=== PATIENT | female | born 1975 | race Caucasian/White ===

== ENCOUNTER 2019-05-17 09:52 | Day surgery (SDC) | payer OTHER ==
[2019-05-13 16:20] LABS: Absolute Lymphocytes (CBC) 3.2 K/uL (0.7-4.9); Basophils % 0.9 % (0-1.3); Hematocrit 45.3 % (36.0-45.0); Lymphocytes % 31.2 % (15.3-44.8); MPV 8.6 fL (7.6-11.3); RBC Red Blood Cell Count 4.72 M/uL (3.86-4.86)
[2019-05-17] MEDS ORDERED: Ringers Lactate 1,000 ML IV ONE (10:33)
[2019-05-17] MEDS ORDERED: FENTANYL CITR 100 MCG/2 ML ONE (11:02)
[2019-05-17] MEDS ORDERED: MIDAZOLAM HCL 2 MG/2 ML INJ ONE (11:02)
[2019-05-17] MEDS ORDERED: PROPOFOL 200 MG/20 ML VIAL IV ONE (11:02)
[2019-05-17] MEDS ORDERED: LIDOCAINE 2% MPF 5 ML VIAL ONE (11:02)
[2019-05-17] MEDS ORDERED: NA CHLORIDE 0.9% 1,000 ML ONE (11:35)
[2019-05-17] MEDS ORDERED: SILVER NITRATE 1 APPL TOP ONE ×2 (11:35→12:52)
--- NOTE | 2019-05-17 12:17 | P.OP ---
Equipment Service Lead: NONE,NONE Preoperative diagnosis: abnormal uterine bleeding Primary procedure: Hysteroscopy, dilation and curettage, & Novasure ablation Estimated blood loss: none Specimen: endometrial curettings Findings: fluffy endometrium with polyps Operative Technique: Ms. Leroy is a 44 year-old female who presented to the office for abnormal uterine bleeding. Ultrasound imaging did not reveal any submucosal fibroids or polyps. An endometrial biopsy was done which was normal. Conservative therapies including were discussed. Ultimately, a plan was made to proceed with a novosure endometrial ablation. Risks, potential complications, and benefits were discussed with and consent was signed prior to the OR. Procedure: Under general anaesthetic in a dorsal lithotomy position, the patient was prepped and draped in the usual sterile manner. Bimanual exam prior to prepping revealed a mobile, anteverted enlarged uterus. A bivalve speculum was placed in the vagina and the anterior lip of the cervix was grasped with a single toothed tenaculum and brought forward. Taking care not to enter deep into the uterus, a sound was passed inside to measure the length of the uterus and cervix. This length was found to be 10 cm. Next, a large Hegar dilator was inserted into the cervical os to measure the cervical length which was 3 cm. This yielded an endometrial cavity length of 7cm. A series of Hegar dilators were then inserted sequentially into the cervical os up to a size of 5 mm. The diagnostic hysteroscope was then introduced into the uterine cavity and the uterus was distended with normal saline fluid. The cavity was examined and found to be normal shape with polyps. Both ostea were visualized. The scope was removed that the cervix was further dilated to 8mm. A curette was introduced into the cavity and a gentle and thorough curettage was performed. The sample was sent to pathology. The novosure device was then opened and tested; the fan deployed easily. The instrument was set to the correct cavity length and introduced into the uterine cavity. The fan was slowly deployed with gentle movements to ensure a snug fit within the cavity. The cavity width read 4. The measurements were imported and a cavity check was done. The trumpet was then slid down to the cervix and the device was activated. The total burn time was 1 min 45 seconds and the power was 143. The fan was retracted and device removed. The fan was examined and revealed charred tissue. The tenaculum was removed and the cervix examined for hemostasis which was achieved. Finally the bivalve speculum was removed. The patient tolerated the procedure well and was brought to the recovery room in a stable condition. At the end of the procedure all sponges and instruments were counted and correct. The blood loss was minimal and there were no complications. Complications: None Transferred to: Recovery Room Condition: Good
[2019-05-17] MEDS ORDERED: KETOROLAC 30 MG/ML INJ ONE (12:20)
[2019-05-17] MEDS: HYDROMORPHONE HCL 1 MG/ML INJ ONE ×2 (12:48→12:55)
[2019-05-17] MEDS ORDERED: ONDANSETRON 4 MG/2 ML VIAL ONE (13:04)
== END 2019-05-17 14:12 | disposition home or self-care (01) ==
LOC: OR 09:52
PROVIDERS: ATTEND Student in an Organized Health Care Education/Training Program
PROC: 0UDB7ZX Extraction of Endometrium, Via Natural or Artificial Opening, Diagnostic (ICD-10-PCS; 2019-05-17)
PROC: 0U5B8ZZ Destruction of Endometrium, Via Natural or Artificial Opening Endoscopic (ICD-10-PCS; principal; 2019-05-17 11:00)
DX: N80.0 Endometriosis of uterus (principal); N84.0 Polyp of corpus uteri; N92.0 Excessive and frequent menstruation with regular cycle; N94.6 Dysmenorrhea, unspecified; J45.909 Unspecified asthma, uncomplicated; J30.2 Other seasonal allergic rhinitis; Z79.899 Other long term (current) drug therapy
CPT/HCPCS: 36415; 81025; 85025; 86850; 86900; 86901; 88305; J1170; J2250; J2405; J2704; J3010; J7030

== ENCOUNTER 2023-04-14 08:44 | Emergency (ER) | payer BC ==
--- OUTSIDE RECORDS SUMMARY | 2023-04-14 08:59 | XMS REPORT | Continuity of Care Document ---
:1975 Author Organization [facility] t Address [address] [place] [address] [place] [id number] Care Team Providers Name Role Phone Tiffani Metcalf Primary Care Physician [phone] Tiffani Gaitan Attending Clinician Unavailable RONEL QUIROGA Attending Clinician Unavailable MD RONEL QUIROGA Attending Clinician Unavailable JOSÉ MIGUEL HEARN Attending Clinician Unavailable MD JOSÉ MIGUEL HEARN Attending Clinician Unavailable RONEL QUIROGA Admitting Clinician Unavailable MD RONEL QUIROGA Admitting Clinician Unavailable JOSÉ MIGUEL HEARN Admitting Clinician Unavailable MD JOSÉ MIGUEL HEARN Admitting Clinician Unavailable Payers Payer Name Policy Type Policy Number Effective Date Expiration Date Alvino TRUONG C1 [id number] [facility] Problems Condition Condition Condition Status Onset Resolution Last Treating Co mments Source Name Details Category Date Date Treatment Clinician Date History of History of Disease Active 2019-10 M ethodi Low-en-Y Low-en-Y 11-11 gastric gastric 00:00: Hospita bypass bypass 00 l Preoperati Preoperati Disease Active 2019-10 M ethodi ve testing ve testing 11-05 00:00: Hospita 00 l Class 2 Class 2 Disease Active Methodi severe severe 06-19 obesity obesity 00:00: Hospita due to due to 00 l excess excess calories calories with with serious serious comorbidit comorbidit y and body y and body mass index mass index (BMI) of (BMI) of 39.0 to 39.0 to 39.9 in 39.9 in adult adult [id number] Environmen Problem Active Co mmon marisol [facility] allergies [facility] [id number] BMI Problem Active Common 38.0-38.9, [facility] adult [facility] [id number] Dysmenorrh Problem Active Co mmon ea [facility] [id number] Morbid Problem Active Common obesity [facility] [id number] Menorrhagi Problem Active Co mmon a with Spirit regular [facility] cycle [facility] [id number] Tobacco Problem Active Common dependence [facility] [id number] Claustroph Problem Active Com mon obia [facility] [id number] Panic Problem Active Common attacks [facility] [id number] Essential Problem Active Comm on hypertensi [facility] on [facility] [id number] Chronic Problem Active Common fatigue [facility] [id number] Hypoglycem Problem Active Co mmon ia [facility] Hypertensi Hypertensi Disease Recurre Methodi on on mne [facility] Hospita l Anxiety Anxiety Disease Recurre Method i [facility] Hospita l GERD GERD Disease Recurre Methodi (gastroeso (gastroeso mne st phageal phageal Hospita reflux reflux l disease) disease) Asthma Asthma Disease Recurre Methodi mne [facility] Hospita l Allergies, Adverse Reactions, Alerts Allergy Allergy Status Severity Reaction(s) Onset Inactive Treating Comm ents Source Name Type Date Date Clinician Sulfa Propensi Active Unknown 2019-10 Methodi (Sulfona ty to Reaction 0-07 st mide adverse 00:00: Hospita Antibiot reaction 00 l ics) s to drug Meperidi Propensi Active Rash Method i ne ty to 06-19 st adverse 00:00: Hospita reaction 00 l s to drug Penicill Propensi Active Rash Method i ins ty to 06-19 adverse 00:00: Hospita reaction 00 l s to drug meperidi meperidi Active Unknown Commo n ne ne [facility] 0 Drug Active Unknown Common allergy [facility] Family History Family Member Diagnosis Comments Start Date Stop Date Source Natural mother Diabetes [facility] Natural mother Hypertension [facility] Natural mother Arthritis [facility] Natural brother Asthma [facility] father Arthritis [facility] father Diabetes [facility] Natural father Hypertension [facility] Social History Social Habit Start Date Stop Date Quantity Comments Source Sexual orientation 2020-08-21 Heterosexual Meth odist 14:46:23 (finding) Hospital History of Tobacco [facility] - Use [facility] Sex Assigned At [facility] junior - [facility] Gender identity [facility] History of Social 2022-12-28 2022-12-[address] function 00:00:00 00:00:00 Hospital Alcohol intake 2020-09-13 2020-09-13 Current drinker of Me thodist 00:00:00 00:00:00 alcohol (finding) Hospita l Cigarettes smoked 2020-08-30 2020-08-[address] current (pack per 00:00:00 00:00:00 Hospita l day) - Reported Cigarette 2020-08-30 2020-08-30 [facility] pack-[facility] 00:00:00 00:00:00 Hospital Tobacco use and 2020-08-30 2020-08-30 Smokeless tobacco [facility] exposure 00:00:00 00:00:00 non-user Hospital Alcohol Comment 2020-07-26 2020-07-26 1 drink per week Met hodist 00:00:00 00:00:00 Hospital Smoking Status Start Date Stop Date Source Never Smoker [facility] Ex-smoker 2020-08-30 00:00:00 2020-08-30 00:00:00 [facility] Medications Ordered Filled Start Stop Current Ordering Indication Dosage Frequency Signature Comments Components Source Medication Medication Date Date Medication? Clinician (SIG) Name Name quinapriL 2019-10 Yes 20mg QD Take 20 mg Me thodi (ACCUPRIL) 1-[address] 20 MG 10:02: every Hospita tablet 09 morning. l albuterol 2019-10 Yes 2{puff} Inhale 2 M ethodi (PROAIR 1-[address] HFA) 90 10:02: needed for Hosp ana mcg/actuati 09 wheezing. l on inhaler ondansetron 2019-10 Yes 4mg Q6H Take 1 Meth chaz (ZOFRAN) 4 1-09 tablet (4 st MG tablet 00:00: mg total) Hos humble 00 by mouth l every 6 (six) hours as needed for nausea or vomiting. Accupril Accupril Yes Tiffani 1 tablet Common 04-19 [place] [facility] 00:00: - [facility] 00 [facility] Accupril 20 Accupril 20 No 1{table QD Accupril MG MG 04-19 t} 20 MG 00:00: 00 Venlafaxine Venlafaxine No 1{table QD Venlafaxin HCl ER 75 HCl ER 75 6 t_with_ e HCl ER MG MG 00:00: food} 75 MG 00 Flonase Flonase 2018-10 Yes Tiffani 2 sprays Co mmon 0-08 [place] each Spirit 00:00: nostril - [facility] 00 prn [facility] ProAir HFA ProAir HFA 2018-10 Yes Tiffani 2 puffs Common 0-08 [place] [facility] 00:00: - [facility] 00 [facility] ProAir HFA ProAir HFA 2018-10 No 2{puffs ProAir HFA 108 (90 108 (90 0-08 } 108 (90 Base) Base) 00:00: Base) MCG/ACT MCG/ACT 00 MCG/ACT ProAir HFA ProAir HFA 2018-10 No 2{puffs ProAir HFA 108 (90 108 (90 0-08 } 108 (90 Base) Base) 00:00: Base) MCG/ACT MCG/ACT 00 MCG/ACT ProAir HFA ProAir HFA 2018-10 No 2{puffs ProAir HFA 108 (90 108 (90 0-08 } 108 (90 Base) Base) 00:00: Base) MCG/ACT MCG/ACT 00 MCG/ACT ProAir HFA ProAir HFA 2018-10 No 2{puffs ProAir HFA 108 (90 108 (90 0-08 } 108 (90 Base) Base) 00:00: Base) MCG/ACT MCG/ACT 00 MCG/ACT ProAir HFA ProAir HFA 2018-10 No 2{puffs ProAir HFA 108 (90 108 (90 0-08 } 108 (90 Base) Base) 00:00: Base) MCG/ACT MCG/ACT 00 MCG/ACT Flonase 50 Flonase 50 No QD Flonase 50 MCG/ACT MCG/ACT MCG/ACT Xyzal Xyzal No 1{table QD Xyzal Allergy Allergy t_in_th Allergy 24HR 5 MG 24HR 5 MG e_eveni 24HR 5 MG ng} Bariatric Bariatric No Bariatric Multivitami Multivitami Multivitam ns/Iron - ns/Iron - ins/Iron - Flonase 50 Flonase 50 No QD Flonase 50 MCG/ACT MCG/ACT MCG/ACT Omeprazole Omeprazole No QD Omeprazole 20 MG 20 MG 20 MG Xyzal Xyzal No 1{table QD Xyzal Allergy Allergy t_in_th Allergy 24HR 5 MG 24HR 5 MG e_eveni 24HR 5 MG ng} Bariatric Bariatric No Bariatric Multivitami Multivitami Multivitam ns/Iron - ns/Iron - ins/Iron - Flonase 50 Flonase 50 No QD Flonase 50 MCG/ACT MCG/ACT MCG/ACT Omeprazole Omeprazole No QD Omeprazole 20 MG 20 MG 20 MG Xyzal Xyzal No 1{table QD Xyzal Allergy Allergy t_in_th Allergy 24HR 5 MG 24HR 5 MG e_eveni 24HR 5 MG ng} Bariatric Bariatric No Bariatric Multivitami Multivitami Multivitam ns/Iron - ns/Iron - ins/Iron - Flonase 50 Flonase 50 No QD Flonase 50 MCG/ACT MCG/ACT MCG/ACT Omeprazole Omeprazole No QD Omeprazole 20 MG 20 MG 20 MG Omeprazole Omeprazole No QD Omeprazole 20 MG 20 MG 20 MG Xyzal Xyzal No 1{table QD Xyzal Allergy Allergy t_in_th Allergy 24HR 5 MG 24HR 5 MG e_eveni 24HR 5 MG ng} Bariatric Bariatric No Bariatric Multivitami Multivitami Multivitam ns/Iron - ns/Iron - ins/Iron - Flonase 50 Flonase 50 No QD Flonase 50 MCG/ACT MCG/ACT MCG/ACT Immunizations Ordered Immunization Filled Immunization Date Status Commen ts Source Name Name Flucelvax - single Flucelvax - single 2020-07-24 Completed [facility] dose syringe dose syringe 16:12:00 - [facility] Flucelvax - single Flucelvax - single 2020-07-24 Completed [facility] dose syringe dose syringe 16:12:00 - [facility] Flucelvax - single Flucelvax - single 2020-07-24 Completed [facility] dose syringe dose syringe 16:12:00 - [facility] Flucelvax - single Flucelvax - single 2020-07-24 Completed [facility] dose syringe dose syringe 16:12:00 - [facility] Flucelvax - single Flucelvax - single 2020-07-24 Completed [facility] dose syringe dose syringe 16:12:00 - [facility] Mercedes Long 2019-07-27 Completed [facility] (Triamcinolone) (Triamcinolone) 14:34:00 [facility] [place] Kenalog 2019-07-27 Completed [facility] (Triamcinolone) (Triamcinolone) 14:34:00 [facility] [place] Kenalog 2019-07-27 Completed [facility] (Triamcinolone) (Triamcinolone) 14:34:00 [facility] 2019-07-27 Completed [facility] (Triamcinolone) (Triamcinolone) 14:34:00 [facility] Kenalog 2019-07-27 Completed [facility] (Triamcinolone) (Triamcinolone) 14:34:00 [facility] Dexamethasone Dexamethasone 2019-07-27 Completed Common S pirit 14:33:00 [facility] Dexamethasone Dexamethasone 2019-07-27 Completed Common S pirit 14:33:00 [facility] Dexamethasone Dexamethasone 2019-07-27 Completed Common S pirit 14:33:00 [facility] Dexamethasone Dexamethasone 2019-07-27 Completed Common S pirit 14:33:00 [facility] Dexamethasone Dexamethasone 2019-07-27 Completed Common S pirit 14:33:00 [facility] Vital Signs Vital Name Observation Time Observation Value Comments Source height 2021-08-06 14:00:00 68 [in_i] Common [facility] weight 2021-08-06 14:00:00 161 [lb_av] Common [facility] temperature 2021-08-06 14:00:00 97.7 [degF] [facility] bmi 2021-08-06 14:00:00 24.48 kg/m2 [facility] oximetry 2021-08-06 14:00:00 99 % [facility] respiratory rate 2021-08-06 14:00:00 16 /min Comm on [facility] blood pressure 2021-08-06 14:00:00 131 mm[Hg] Common [facility] systolic [facility] blood pressure 2021-08-06 14:00:00 65 mm[Hg] Common [facility] diastolic [facility] height 2021-02-28 08:00:00 68 [in_i] [facility] weight 2021-02-28 08:00:00 179 [lb_av] [facility] temperature 2021-02-28 08:00:00 98.1 [degF] [facility] bmi 2021-02-28 08:00:00 27.21 kg/m2 [facility] oximetry 2021-02-28 08:00:00 99 % [facility] respiratory rate 2021-02-28 08:00:00 17 /min Comm on [facility] blood pressure 2021-02-28 08:00:00 120 mm[Hg] Common [facility] systolic [facility] blood pressure 2021-02-28 08:00:00 70 mm[Hg] Common [facility] diastolic [facility] Procedures This patient has no known procedures. Plan of Care Planned Activity Planned Date Details Comments Source Future Scheduled 2023-04-06 Screening for [facility] Test 12:02:35 malignant neoplasm of colon (procedure) [code = 694457532] Future Scheduled 2023-04-06 Screening for [facility] Test 12:02:35 malignant neoplasm of colon (procedure) [code = 492448207] Future Scheduled 2023-04-06 Screening for [facility] Test 12:02:35 malignant neoplasm of colon (procedure) [code = 670240267] Future Scheduled 2023-04-06 COVID-19 VACCINE (#1) [facility] Test 12:02:35 [code = COVID-19 VACCINE (#1)] Future Scheduled 2023-04-06 Pneumococcal Vaccine: [facility] Test 12:02:35 Pediatrics (0 to 5 Years) and At-Risk Patients (6 to 64 Years) (1 - PCV) [code = Pneumococcal Vaccine: Pediatrics (0 to 5 Years) and At-Risk Patients (6 to 64 Years) (1 - PCV)] Future Scheduled 2023-04-06 Hepatitis C screening [facility] Test 12:02:35 (procedure) [code = 973368209] Future Scheduled 2023-04-06 Screening for [facility] Test 12:02:35 malignant neoplasm of cervix (procedure) [code = 798644242] Future Scheduled 2023-04-06 BREAST CANCER [facility] Test 12:02:35 SCREENING [code = BREAST CANCER SCREENING] Future Scheduled 2023-04-06 Screening for [facility] Test 12:02:35 malignant neoplasm of colon (procedure) [code = 337303109] Future Scheduled 2023-04-06 Screening for [facility] Test 12:02:35 malignant neoplasm of colon (procedure) [code = 556321789] Future Scheduled 2023-04-06 INFLUENZA VACCINE Method [facility] Test 12:02:35 [code = INFLUENZA VACCINE] Encounters Start End Encounter Admission Attending Care Care Encounter Source Date/Time Date/Time Type Type Clinicians Facility Department ID 2023-03-18 Outpatient Kandy [facility] [id number] Common 10:10:00 Tiffani [id number] [facility] 2023-03-14 Outpatient Kandy [facility] [id number] Common 10:23:00 Tiffani [id number] [facility] 2023-01-22 Outpatient Kandy [facility] [id number] Common 14:23:00 Tiffani [id number] [facility] 2021-11-14 Outpatient [place], STLMLC STLMLC [id number] Common 13:02:15 Tiffani [id number] [facility] 2021-11-14 Outpatient [place], STLMLC STLMLC [id number] Common 11:36:55 Tiffani [id number] [facility] 2021-11-14 Outpatient [place], STLMLC STLMLC [id number] Common 11:29:12 Tiffani [id number] [facility] 2021-08-06 2021-08-06 OFFICE STLMLC STLMLC [id number] Co mmon 00:00:00 00:00:00 VISIT EST Spir it PT LEVEL 3 [facility] 2021-04-09 2021-04-09 (TEL) STLMLC STLMLC [id number] Co mmon 00:00:00 00:00:00 [facility] 2021-02-28 2021-02-28 PREV VISIT STLMLC STLMLC [id number] Common 00:00:00 00:00:00 EST AGE Spirit 40-64 [facility] 2021-02-28 2021-02-28 (TEL) STLMLC STLMLC [id number] Co mmon 00:00:00 00:00:00 [facility] 2020-12-27 2020-12-27 (TEL) STLMLC STLMLC [id number] Co mmon 00:00:00 00:00:00 [facility] 2020-09-13 2020-09-13 Outpatient QUIROGA, [facility] [id number] [place] 00:00:00 00:00:00 RONEL [address] 2020-09-05 2020-09-06 Inpatient QUIROGA, [facility] [id number] [place] 00:00:00 00:00:00 RONEL [address] 2020-08-31 2020-08-31 Outpatient QUIROGA, [facility] [id number] [place] 00:00:00 00:00:00 RONEL [address] 2020-08-31 2020-08-31 Outpatient QUIROGA, [facility] [id number] [place] 00:00:00 00:00:00 RONEL [address] 2020-08-28 2020-08-28 Outpatient QUIROGA, [facility] [id number] [place] 00:00:00 00:00:00 RONEL [address] 2020-08-22 2020-08-22 Outpatient QUIROGA, [facility] [id number] [place] 00:00:00 00:00:00 RONEL [address] 2020-07-31 2020-07-31 Outpatient KAFROUNI, [place] [id number] [place] 00:00:00 00:00:00 JOSÉ MIGUEL [address] 2020-07-28 2020-07-28 Outpatient KAFROUNI, [facility] [id number] [place] 00:00:00 00:00:00 JOSÉ MIGUEL [address] 2020-07-24 2020-07-24 Outpatient STLMLC STLMLC [id number] Common 00:00:00 00:00:00 [facility] 2020-07-20 2020-07-20 Outpatient QUIROGA, [facility] [id number] [place] 00:00:00 00:00:00 RONEL [address] 2020-07-20 2020-07-20 Outpatient STLMLC STLMLC [id number] Common 00:00:00 00:00:00 [facility] 2020-07-17 2020-07-17 Outpatient QUIROGA, [facility] [id number] [place] 00:00:00 00:00:00 RONEL [address] 2020-07-07 2020-07-07 Outpatient STLMLC STLMLC [id number] Common 00:00:00 00:00:00 [facility] 2020-07-04 2020-07-04 Outpatient QUIROGA, [facility] [id number] [place] 00:00:00 00:00:00 RONEL [address] 2020-06-19 2020-06-19 Outpatient QUIROGA, [facility] [id number] [place] 00:00:00 00:00:00 RONEL [address] 2020-06-01 2020-06-01 Out[facility] [id number] Common 18:54:00 18:54:00 [facility] 2020-06-01 2020-06-01 Out[facility] [id number] Common 15:40:00 15:40:[address] [facility] 2020-04-19 2020-04-19 Outpatient [facility] [id number] Common 08:40:00 08:40:[address] [facility] 2020-04-05 2020-04-05 Outpatient [facility] [id number] Common 13:20:00 13:20:[address] [facility] 2019-11-12 2019-11-12 Outpatient [facility] [id number] Common 09:40:00 09:40:[address] [facility] [address] [facility] [address] [facility] Results Test Description Test Time Test Comments Results Result Comments Source SARS-CoV-2 (COVID-19) RNA [Presence] in Respiratory sp ecimen by 2020-08-31 21:07:41 DANO with probe detection Test Item Value Reference Range Interpretation Comme nts SARS-CoV-2 (COVID-19) RNA [Presence] in Respiratory Not detected No t-Detected specimen by DANO with probe detection (test code = 05406-2[facility] [Presence] in Respiratory specimen by DANO with probe [id number] 22:29:02 Test Item Value Reference Range Interpretation Comments SARS-CoV-2 (COVID-19) RNA Not detected Not-Detected [Presence] in Respiratory specimen by DANO with probe detection (test code = 59619-9) [facility]
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
[2023-04-14 10:34] VITALS: TEMP 98.6; O2SAT 100
[2023-04-14 10:35] VITALS: BP 137/91
== END 2023-04-14 10:29 | disposition home or self-care (01) ==
LOC: ER 08:44
DX: S16.1XXA Strain of muscle, fascia and tendon at neck level, initial encounter (principal); S00.81XA Abrasion of other part of head, initial encounter; Z88.0 Allergy status to penicillin; Z88.2 Allergy status to sulfonamides; Z88.5 Allergy status to narcotic agent
CPT/HCPCS: 70450; 70486; 72125; 76377

== ENCOUNTER 2023-06-10 10:51 | Emergency (ER) | payer BC ==
--- OUTSIDE RECORDS SUMMARY | 2023-06-10 11:22 | XMS REPORT | Continuity of Care Document ---
:1975 Author Organization [facility] t Address [address] [place] [address] [place] [id number] Care Team Providers Name Role Phone Tiffani Metcalf Primary Care Physician [phone] Tiffani Gaitan Attending Clinician Unavailable RONEL [...] Effective Date Expiration Date Alvino TRUONG C1 [id number] [facility] Problems Condition Condition Condition Status Onset [...] to 39.9 in 39.9 in adult adult [id number] Dysmenorrh Problem Active Co mmon ea [facility] [id number] Morbid Problem Active Common obesity [facility] [id number] Menorrhagi Problem Active Co mmon a with Spirit regular - [facility] cycle [facility] [id number] Tobacco Problem Active Common dependence [facility] [id number] Claustroph Problem Active Com mon obia [facility] [id number] Panic Problem Active Common attacks [facility] [id number] Essential Problem Active Comm on hypertensi [facility] on [facility] [id number] Chronic Problem Active Common fatigue [facility] [id number] Hypoglycem Problem Active Co mmon ia [facility] Hypertensi Hypertensi Disease [facility] Anxiety Anxiety Disease [facility] GERD GERD Disease Recurre Methodi (gastroeso (gastroeso nce st phageal phageal Hospita reflux reflux l disease) disease) Asthma Asthma Disease Recurre [facility] [id number] Environmen Problem Active Co mmon marisol [facility] allergies [facility] [id number] BMI Problem Active Common 38.0-38.9, [facility] adult [facility] Allergies, Adverse Reactions, Alerts Allergy Allergy Status [...] meperidi Active Unknown Commo n ne ne [facility] 0 Drug Active Unknown Common allergy [facility] Family History Family Member Diagnosis Comments Start Date Stop Date Source Natural mother Diabetes [facility] Natural mother Hypertension [facility] Natural mother Arthritis [facility] Natural brother Asthma [facility] father Arthritis [facility] father Diabetes [facility] Natural father Hypertension [facility] Social History Social Habit Start Date Stop Date Quantity Comments Source Sexual orientation 2020-08-21 Heterosexual Meth odist 14:46:23 (finding) Hospital History of Tobacco [facility] - Use [facility] Sex Assigned At [facility] junior - [facility] Gender identity [facility] History of Social 2022-12-28 2022-12-[address] function 00:00:00 00:00:00 Hospital Alcohol intake 2020-09-13 2020-09-13 Current drinker of [facility] 00:00:00 00:00:00 alcohol (finding) Hospita l Tobacco use and 2020-08-30 2020-08-30 Smokeless tobacco [facility] exposure 00:00:00 00:00:00 non-user Hospital Cigarettes smoked 2020-08-30 2020-08-[address] current (pack per 00:00:00 00:00:00 Hospita l day) - Reported Cigarette 2020-08-30 2020-08-30 [facility] pack-years 00:00:00 00:00:00 Hospital Alcohol Comment 2020-07-26 2020-07-26 1 drink per week Met [facility]ist 00:00:00 00:00:00 Hospital Smoking Status Start Date Stop Date Source Never Smoker [facility] Ex-smoker 2020-08-30 00:00:00 2020-08-30 00:00:00 [facility] Medications Ordered Filled Start Stop Current Ordering [...] ana mcg/actuati 09 wheezing. l on inhaler quinapriL 2019-10 Yes 20mg QD Take 20 [...] hours as needed for nausea or vomiting. ondansetron 2019-10 Yes 4mg Q6H Take 1 Meth chaz (ZOFRAN) 4 -09 tablet (4 st MG tablet 00:00: mg total) Hos humble 00 by mouth l every 6 (six) hours as needed for nausea or vomiting. Accupril Accupril Yes Tiffani 1 tablet Common 04-19 [facility] 00:00: - [facility] 00 [facility] Accupril 20 Accupril 20 No 1{table QD Accupril MG MG 04-19 t} 20 MG 00:00: 00 Venlafaxine Venlafaxine No 1{table QD Venlafaxin HCl ER 75 HCl ER 75 6-17 t_with_ e HCl ER MG MG 00:00: food} 75 MG 00 Flonase Flonase 2018-10 Yes Tiffani 2 sprays Co mmon 008 [facility] each Spirit 00:00: nostril - [facility] 00 prn [facility] ProAir HFA ProAir HFA 2018-10 Yes Tiffani 2 puffs Common 008 [facility] 00:00: - [facility] 00 [facility] ProAir HFA ProAir HFA 2018-10 No 2{puffs ProAir HFA 108 (90 108 (90 0-08 } 108 (90 Base) Base) 00:00: Base) MCG/ACT MCG/ACT 00 MCG/ACT ProAir HFA ProAir HFA 2018-10 No 2{puffs ProAir HFA 108 (90 108 (90 0-08 } 108 (90 Base) Base) 00:00: Base) MCG/ACT MCG/ACT 00 MCG/ACT ProAir HFA ProAir HFA 2018- No 2{puffs ProAir HFA 108 (90 108 [...] [facility] dose syringe dose syringe 16:12:00 [facility] Flucelvax - single Flucelvax - single 2020-07-24 Completed [facility] dose syringe dose syringe 16:12:00 [facility] Flucelvax - single Flucelvax - single 2020-07-24 Completed [facility] dose syringe dose syringe 16:12:00 [facility] Flucelvax - single Flucelvax - single 2020-07-24 Completed [facility] dose syringe dose syringe 16:12:00 [facility] Flucelvax - single Flucelvax - single 2020-07-24 Completed [facility] dose syringe dose syringe 16:12:00 [facility] 2019-07-27 Completed [facility] (Triamcinolone) (Triamcinolone) 14:34:00 - [facility] 2019-07-27 Completed [facility] (Triamcinolone) (Triamcinolone) 14:34:00 - [facility] 2019-07-27 Completed [facility] (Triamcinolone) (Triamcinolone) 14:34:00 [facility] 2019-07-27 Completed [facility] (Triamcinolone) (Triamcinolone) 14:34:00 [facility] 2019-07-27 Completed [facility] (Triamcinolone) (Triamcinolone) 14:34:00 [facility] Dexamethasone Dexamethasone 2019-07-27 Completed Common S pirit 14:33:00 - [facility] Dexamethasone Dexamethasone 2019-07-27 Completed Common S pirit 14:33:00 - [facility] Dexamethasone Dexamethasone 2019-07-27 Completed Common S pirit 14:33:00 - [facility] Dexamethasone Dexamethasone 2019-07-27 Completed Common S pirit 14:33:00 - [facility] Dexamethasone Dexamethasone 2019-07-27 Completed Common S pirit 14:33:00 - [facility] Vital Signs Vital Name Observation Time Observation Value Comments Source height 2021-08-06 14:00:00 68 [in_i] Common [facility] weight 2021-08-06 14:00:00 161 [lb_av] [facility] temperature 2021-08-06 14:00:00 97.7 [degF] [facility] bmi 2021-08-06 14:00:00 24.48 kg/m2 [facility] oximetry 2021-08-06 14:00:00 99 % [facility] respiratory rate 2021-08-06 14:00:00 16 /min Comm on Spirit [facility] blood pressure 2021-08-06 14:00:00 131 mm[Hg] [facility] - systolic [facility] blood pressure 2021-08-06 14:00:00 65 mm[Hg] [facility] - diastolic [facility] height 2021-02-28 08:00:00 68 [in_i] Common [facility] weight 2021-02-28 08:00:00 179 [lb_av] [facility] temperature 2021-02-28 08:00:00 98.1 [degF] [facility] bmi 2021-02-28 08:00:00 27.21 kg/m2 [facility] oximetry 2021-02-28 08:00:00 99 % [facility] respiratory rate 2021-02-28 08:00:00 17 /min Comm on [facility] blood pressure 2021-02-28 08:00:00 120 mm[Hg] [facility] - systolic [facility] blood pressure 2021-02-28 08:00:00 70 mm[Hg] [facility] - diastolic [facility] Procedures This patient has no known procedures. Plan of Care Planned Activity Planned Date Details Comments Source Future Scheduled 2023-05-25 Screening for [facility] Test 06:23:30 malignant neoplasm of colon (procedure) [code = 466057733] Future Scheduled 2023-05-25 Screening for [facility] Test 06:23:30 malignant neoplasm of colon (procedure) [code = 050125301] Future Scheduled 2023-05-25 Screening for [facility] Test 06:23:30 malignant neoplasm of colon (procedure) [code = 550647855] Future Scheduled 2023-05-25 COVID-19 VACCINE (#1) [facility] Test 06:23:30 [code = COVID-19 VACCINE (#1)] Future Scheduled 2023-05-25 Pneumococcal Vaccine: [facility] Test 06:23:30 Pediatrics (0 to 5 Years) and At-Risk Patients (6 to 64 Years) (1 - PCV) [code = Pneumococcal Vaccine: Pediatrics (0 to 5 Years) and At-Risk Patients (6 to 64 Years) (1 - PCV)] Future Scheduled 2023-05-25 Hepatitis C screening [facility] Test 06:23:30 (procedure) [code = 048484371] Future Scheduled 2023-05-25 Screening for [facility] Test 06:23:30 malignant neoplasm of cervix (procedure) [code = 171306070] Future Scheduled 2023-05-25 BREAST CANCER [facility] Test 06:23:30 SCREENING [code = BREAST CANCER SCREENING] Future Scheduled 2023-05-25 Screening for [facility] Test 06:23:30 malignant neoplasm of colon (procedure) [code = 548300610] Future Scheduled 2023-05-25 Screening for [facility] Test 06:23:30 malignant neoplasm of colon (procedure) [code = 238946211] Future Scheduled 2023-05-25 INFLUENZA VACCINE [facility] Test 06:23:30 [code = INFLUENZA VACCINE] Future Scheduled 2023-04-06 Screening for [facility] Test 12:02:35 malignant neoplasm of colon (procedure) [code = 592679775] Future Scheduled 2023-04-06 Screening for [facility] Test 12:02:35 malignant neoplasm of colon (procedure) [code = 703802087] Future Scheduled 2023-04-06 Screening for [facility] Test 12:02:35 malignant neoplasm of colon (procedure) [code = 712755358] Future Scheduled 2023-04-06 COVID-19 VACCINE (#1) [facility] Test 12:02:35 [code = COVID-19 VACCINE (#1)] Future Scheduled 2023-04-06 Pneumococcal Vaccine: [facility] Test 12:02:35 Pediatrics (0 to 5 Years) and At-Risk Patients (6 to 64 Years) (1 - PCV) [code = Pneumococcal Vaccine: Pediatrics (0 to 5 Years) and At-Risk Patients (6 to 64 Years) (1 - PCV)] Future Scheduled 2023-04-06 Hepatitis C screening [facility] Test 12:02:35 (procedure) [code = 632896781] Future Scheduled 2023-04-06 Screening for [facility] Test 12:02:35 malignant neoplasm of cervix (procedure) [code = 042471092] Future Scheduled 2023-04-06 BREAST CANCER [facility] Test 12:02:35 SCREENING [code = BREAST CANCER SCREENING] Future Scheduled 2023-04-06 Screening for [facility] Test 12:02:35 malignant neoplasm of colon (procedure) [code = 141218342] Future Scheduled 2023-04-06 Screening for [facility] Test 12:02:35 malignant neoplasm of colon (procedure) [code = 643663986] Future Scheduled 2023-04-06 INFLUENZA VACCINE [facility] Test 12:02:35 [code = INFLUENZA VACCINE] Encounters Start End Encounter Admission Attending Care Care Encounter Source Date/Time Date/Time Type Type Clinicians Facility Department ID 2023-03-18 Outpatient HAZEL Gaitan [facility] [id number] Common 10:10:00 Tiffani [id number] [facility] 2023-03-14 Outpatient HAZEL Gaitan [facility] [id number] Common 10:23:00 Tiffani [address] [facility] 2023-01-22 Outpatient Constantine, [facility] [id number] Common 14:23:00 Tiffani 40731 [facility] 2021-11-14 Outpatient Constantine, STLMLC ST[facility] [id number] Common 13:02:15 Tiffani 11855 [facility] 2021-11-14 Outpatient Constantine, STLMLC STLMLC [id number] Common 11:36:55 Tiffani [id number] [facility] 2021-11-14 Outpatient Constantine, STLMLC STLMLC [id number] Common 11:29:12 Tiffani 12374 [facility] 2021-08-06 2021-08-06 OFFICE STLMLC STLMLC [id number] Co mmon 00:00:00 00:00:00 VISIT EST Spir it PT LEVEL 3 [facility] 2021-04-09 2021-04-09 (TEL) STLMLC STLMLC [id number] Co mmon 00:00:00 00:00:00 [facility] 2021-02-28 2021-02-28 PREV VISIT STLMLC STLMLC [id number] Common 00:00:00 00:00:00 EST A[age] Alexandr 40-64 [facility] 2021-02-28 2021-02-28 (TEL) STLMLC STLMLC [id number] Co mmon 00:00:00 00:00:00 [facility] 2020-12-27 2020-12-27 (TEL) STLMLC STLMLC [id number] Co mmon 00:00:00 00:00:00 [facility] 2020-09-13 2020-09-13 Outpatient QUIROGA, [facility] [id number] [place] 00:00:00 00:00:00 RONEL 332 Method i 2020-09-05 2020-09-06 Inpatient QUIROGA, [facility] [id number] [place] 00:00:00 00:00:00 RONEL 907 Method i 2020-08-31 2020-08-31 Outpatient QUIROGA, [facility] [id number] [place] 00:00:00 00:00:00 RONEL [address] 2020-08-31 2020-08-31 Outpatient QUIROGA, [facility] [id number] [place] 00:00:00 00:00:00 RONEL [address] 2020-08-28 2020-08-28 Outpatient QUIROGA, [facility] [id number] [place] 00:00:00 00:00:00 RONEL [address] 2020-08-22 2020-08-22 Outpatient QUIROGA, [facility] [id number] [place] 00:00:00 00:00:00 RONEL [address] 2020-07-31 2020-07-31 Outpatient KAFROUNI, [place] [id number] [place] 00:00:00 00:00:00 JOSÉ MIGUEL [address] 2020-07-28 2020-07-28 Outpatient KAFROUNI, [facility] [id number] [place] 00:00:00 00:00:00 JOSÉ MIGUEL [address] 2020-07-24 2020-07-24 Outpatient STLMLC ST[facility]C [id number] Common 00:00:00 00:00:00 [facility] 2020-07-20 2020-07-20 Outpatient QUIROGA, [facility] [id number] [place] 00:00:00 00:00:00 RONEL [address] 2020-07-20 2020-07-20 Outpatient STLMLC STLMLC [id number] Common 00:00:00 00:00:00 [facility] 2020-07-17 2020-07-17 Outpatient QUIROGA, [facility] [id number] [place] 00:00:00 00:00:00 RONEL [address] 2020-07-07 2020-07-07 Outpatient STLMLC STL[facility]C [id number] Common 00:00:00 00:00:00 [facility] 2020-07-04 2020-07-04 Outpatient QUIROGA, [facility] [id number] [place] 00:00:00 00:00:00 RONEL [address] 2020-06-19 2020-06-19 Outpatient QUIROGA, [facility] [id number] [place] 00:00:00 00:00:00 RONEL [address] 2020-06-01 2020-06-01 Outpatient [facility] [id number] Common 18:54:00 18:54:[address] [facility] 2020-06-01 2020-06-01 [place] [facility] [id number] Common 15:40:00 15:40:[address] [facility] 2020-04-19 2020-04-19 Outpatient [facility] [id number] Common 08:40:00 08:40:[address] [facility] 2020-04-05 2020-04-05 [facility] [id number] Common 13:20:00 13:20:[address] [facility] 2019-11-12 2019-11-12 Outpatient [place] [id number] Common 09:40:00 09:40:[address] [facility] Results Test Description Test Time Test Comments Results Result Comments Source SARS-CoV-2 (COVID-19) RNA [Presence] in Respiratory sp ecimen by 2020-08-31 21:07:41 DANO with probe detection Test Item Value Reference Range Interpretation Comme nts SARS-CoV-2 (COVID-19) RNA [Presence] in Respiratory Not detected No t-Detected specimen by DANO with probe detection (test code = 01264-9) [facility] [Presence] in Respiratory specimen by DANO with probe [id number] 22:29:02 Test Item Value Reference Range Interpretation Comments SARS-CoV-2 (COVID-19) RNA Not detected Not-Detected [Presence] in Respiratory specimen by DANO with probe detection (test code = 85613-0) [facility]
[2023-06-10] MEDS ORDERED: DIAZEPAM 5 MG TABLET ONE (11:24)
[2023-06-10] MEDS ORDERED: HYDROCODONE/APAP 5/325 MG TAB ONE (11:25)
--- NOTE | 2023-06-10 11:38 | RAD REPORT ---
EXAM DESCRIPTION: CT - Spine Lumbar Wo Con - 06/10/2023 11:28 am CLINICAL HISTORY: Fall;Lower back pain COMPARISON: No comparisons TECHNIQUE: Axial noncontrast CT imaging of the lumbar spine was performed with coronal and sagittal re-formatted images. All CT scans are performed using dose optimization technique as appropriate and may include automated exposure control or mA/KV adjustment according to patient size. FINDINGS: Right L1, L2, L3, L4 transverse process fractures. The vertebral body heights are maintain ed. The right L3-L4 transverse process fractures are displaced. No other fractures identified. Cholec ystectomy. Intervertebral disc disease assessment is inherently limited by CT. Within these limitations, no high -grade canal stenosis suspected. IMPRESSION: Right L1 through L4 transverse process fractures.
--- NOTE | 2023-06-10 12:09 | EDPHYS ---
Physician Documentation [facility] – [place], [place] Name: Stacey Leroy Age: 48 yrs Sex: Female : 1975 Arrival Date: 06/10/2023 Time: 10:51 Bed 5 Private MD: ED Physician Lester Danielson HPI: 06/10 11:32 This 48 yrs old Female presents to ER via Ambulatory with complaints of Back Pain, Leg ms3 Pain. 11:32 48-year-old female with no past medical history presents for right-sided back pain that ms3 occurred after falling while intoxicated last night. Patient states she landed on her right side. Patient denies loss of consciousness. Patient states pain is a 9/10 and sharp. Patient states pain is better while laying still. Patient states movement makes the pain worse and causes the pain to radiate down her right leg.. 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 - Social history:: Smoking status: Reported history of juuling and/or vaping. ROS: 11:32 Constitutional: Negative for fever, and chills. Neck: Negative for injury, pain, and ms3 swelling, Cardiovascular: Negative for chest pain, and palpitations. Respiratory: Negative for shortness of breath, cough, wheezing, and pleuritic chest pain, Abdomen/GI: Negative for abdominal pain, nausea, vomiting, diarrhea, and constipation. 11:32 Skin: Negative for injury, rash, and discoloration, Neuro: Negative for headache, weakness, numbness, tingling. 11:32 Back: Positive for pain with movement, Negative for pain at rest. 11:32 All other systems are negative. Exam: 11:32 Constitutional: This is a well developed, well nourished patient who is awake, alert, ms3 and in no acute distress. Head/Face: Normocephalic, atraumatic. Neck: Trachea midline, no cervical lymphadenopathy. Supple, full range of motion without nuchal rigidity, or vertebral point tenderness. No Meningismus. Chest/axilla: Normal chest wall appearance and motion. Nontender with no deformity. Cardiovascular: Regular rate and rhythm with a normal S1 and S2. No gallops, murmurs, or rubs. Normal PMI, no JVD. No pulse deficits. Respiratory: Lungs have equal breath sounds bilaterally, clear to auscultation and percussion. No rales, rhonchi or wheezes noted. No increased work of breathing, no retractions or nasal flaring. Abdomen/GI: Soft, non-tender, with normal bowel sounds. No distension or tympany. No guarding or rebound. No evidence of tenderness throughout. Skin: Warm, dry with normal turgor. Normal color with no rashes, no lesions, and no evidence of cellulitis. MS/ Extremity: Pulses equal, no cyanosis. Neurovascular intact. Full, normal range of motion. 11:32 Back: pain, that is severe, of the right low back, ROM is painful, with all movement, normal spinal alignment noted, vertebral tenderness, is not appreciated, muscle spasm, is appreciated in the right low back. Vital Signs: 10:54 BP 143 / 78; Pulse 77; Resp 24 S; Temp 97.7(TE); Pulse Ox 100% on R/A; Weight 68.95 kg aa5 (R); Height 5 ft. 8 in. (R); 11:16 BP 132 / 79; Pulse 84; Resp 19; Pulse Ox 98% on R/A; Pain 10/10; me1 12:23 BP 125 / 89; Pulse 90; Resp 16; Pulse Ox 100% on R/A; me1 10:54 Body Mass Index 23.11 (68.95 kg, 172.72 cm) aa5 11:16 Pain Scale: Adult me1 MDM: 11:08 Patient medically screened. ms3 11:32 Differential diagnosis: Fracture muscle spasm vs DDD. ms3 12:23 Data reviewed: vital signs, nurses notes, and as a result, I will discharge patient. I ms3 considered the following discharge prescriptions or medication management in the emergency department Medications were administered in the Emergency Department. See MAR. Independent interpretation of the following test(s) in the Emergency Department CT Scan: My interpretation is CT images reviewed by me show Right sided TP fracutres. Historians other than the Patient: Spouse/Significant Other: Patient's . Counseling: I had a detailed discussion with the patient and/or guardian regarding the historical points, exam findings, and any diagnostic results supporting the discharge/admit diagnosis, radiology results, the need for outpatient follow up, to return to the emergency department if symptoms worsen or persist or if there are any questions or concerns that arise at home. Response to treatment: the patient's symptoms have mildly improved after treatment, and as a result, I will discharge patient. Special discussion: I discussed with the patient/guardian in detail that at this point there is no indication for admission to the hospital. It is understood, however, that if the symptoms persist or worsen the patient needs to return immediately for re-evaluation. ED course: Discussed CT findings with patient and her . Patient to follow-up with Dr. Espinoza in 1 to 2 days. Patient understands and agrees with plan. All questions were answered. Return precautions discussed include worsening symptoms, or any other concerns. Patient given prescription for morphine sulfate immediate release 15 mg every 6 hours as needed pain, Flexeril 10 mg every 8 hours as needed for muscle spasms and Narcan.. 06/10 11:09 Order name: CT Lumbar Spine Wo Con; Complete Time: 12:02 ms3 Administered Medications: 11:15 Drug: HYDROcodone-acetaminophen PO 5 mg-325 mg 1 tabs Route: PO; me1 12:15 Follow up: Response: No adverse reaction; Pain is decreased me1 11:15 Drug: Diazepam PO 10 mg Route: PO; me1 12:15 Follow up: Response: No adverse reaction; Pain is decreased me1 Disposition Summary: 06/10/23 12:08 Discharge Ordered Location: Home ms3 Condition: Stable ms3 Diagnosis - L1, L2, L3, L4 Transverse process fractures ms3 - Low back pain ms3 - Muscle spasm of back ms3 Followup: ms3 - With: Private Physician - When: 1 - 2 days - Reason: Recheck today's complaints Discharge Instructions: - Discharge Summary Sheet ms3 - Acute Back Pain, Adult ms3 - Transverse Process Fracture ms3 Forms: - Medication Reconciliation Form ms3 - Thank You Letter ms3 - Antibiotic Education ms3 - Prescription Opioid Use ms3 - Patient Portal Instructions ms3 - Leadership Thank You Letter ms3 - Work release form me1 Prescriptions: - Narcan 4 mg/actuation Nasal spray, non-aerosol - spray 1 spray by INTRANASAL route once; 1 Applicator; Refills: 0, Product ms3 Selection Permitted - Cyclobenzaprine 10 mg Oral Tablet - take 1 tablet by ORAL route every 8 hours As needed; 30 tablet; Refills: 0, ms3 Product Selection Permitted Signatures: Dispatcher [employer] Evelin Pope, RN RN aa5 Lester Danielson DO DO ms3 Anni Seay, ALLIE RN me1
--- NOTE | 2023-06-10 12:09 | ER ---
Nurse's Notes [facility] Name: Stacey Leroy Age: 48 yrs Sex: Female : 1975 Arrival Date: 06/10/2023 Time: 10:51 Bed 5 Private MD: Diagnosis: L1, L2, L3, L4 Transverse process fractures;Low back pain;Muscle spasm of back Presentation: 06/10 10:54 Chief complaint: Patient states: "I had a little bit too much alcohol and fell last aa5 night". Pt c/o pain to right side of back radiating down to right leg. Pt denies head injury. Coronavirus screen: At this time, the client does not indicate any symptoms associated with coronavirus-19. Ebola Screen: Patient denies travel to an Ebola-affected area in the 21 days before illness onset. Risk Assessment: Do you want to hurt yourself or someone else? Patient reports no desire to harm self or others. Onset of symptoms was June 09, 2023. 10:54 Acuity: BRITTA 3 aa5 10:54 Method Of Arrival: Ambulatory aa5 10:54 Initial Sepsis Screen: Does the patient meet any 2 criteria? No. Patient's initial aa5 sepsis screen is negative. Does the patient have a suspected source of infection? No. Patient's initial sepsis screen is negative. 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 - Social history:: Smoking status: Reported history of juuling and/or vaping. Screenin:09 [facility] ED Fall Risk Assessment (Adult) History of falling in the last 3 months, me1 including since admission Yes- single mechanical fall (1 pt). Abuse screen: Denies threats or abuse. Nutritional screening: No deficits noted. Tuberculosis screening: No symptoms or risk factors identified. Assessment: 11:09 General: Appears uncomfortable, well groomed, well developed, well nourished, Behavior me1 is cooperative, appropriate for age, anxious, crying, Reports was drinking last night and fell. C/o pain to right lower back that radiates down her right leg. Pain: Complains of pain in right lower back Pain radiates to right leg. Neuro: Level of Consciousness is awake, alert, obeys commands, Oriented to person, place, time, situation, Appropriate for age Cardiovascular: Capillary refill < 3 seconds Patient's skin is warm and dry. Respiratory: Airway is patent Respiratory effort is even, unlabored, Respiratory pattern is regular, symmetrical. Musculoskeletal:. Vital Signs: 10:54 BP 143 / 78; Pulse 77; Resp 24 S; Temp 97.7(TE); Pulse Ox 100% on R/A; Weight 68.95 kg aa5 (R); Height 5 ft. 8 in. (R); 11:16 BP 132 / 79; Pulse 84; Resp 19; Pulse Ox 98% on R/A; Pain 10/10; me1 12:23 BP 125 / 89; Pulse 90; Resp 16; Pulse Ox 100% on R/A; me1 10:54 Body Mass Index 23.11 (68.95 kg, 172.72 cm) aa5 11:16 Pain Scale: Adult nc1 ED Course: 10:52 Patient arrived in ED. rg4 10:53 Lester Danielson DO is Attending Physician. ms3 10:54 Arm band placed on. aa5 10:55 Triage completed. aa5 11:08 Anni Seay, RN is Primary Nurse. me1 11:09 Patient has correct armband on for positive identification. Bed in low position. Call nc1 light in reach. Side rails up X 1. Provided Education on: POC. Verbalized understanding. . 11:09 No provider procedures requiring assistance completed. me1 11:30 CT Lumbar Spine Wo Con In Process Unspecified. EDMS Administered Medications: 11:15 Drug: HYDROcodone-acetaminophen PO 5 mg-325 mg 1 tabs Route: PO; me1 12:15 Follow up: Response: No adverse reaction; Pain is decreased me1 11:15 Drug: Diazepam PO 10 mg Route: PO; me1 12:15 Follow up: Response: No adverse reaction; Pain is decreased me1 Medication: 11:09 VIS not applicable for this client. me1 Outcome: 12:08 Discharge ordered by . ms3 12:24 Discharged to home with family. me1 12:24 Condition: stable 12:24 Discharge instructions given to patient, family, Instructed on discharge instructions, follow up and referral plans. medication usage, Demonstrated understanding of instructions, follow-up care, medications, Prescriptions given X 3. 12:38 Patient left the ED. me1 Signatures: Dispatcher [employer] EDEvelin Mora, RN RN aa5 Pattie Arzola rg4 Lester Danielson, DO ms3 Anni Seay, RN RN me1
[2023-06-10 12:46] VITALS: TEMP 97.7
[2023-06-10 12:58] VITALS: BP 125/89; O2SAT 100
== END 2023-06-10 12:38 | disposition home or self-care (01) ==
LOC: ER 10:51
DX: S32.019A Unspecified fracture of first lumbar vertebra, initial encounter for closed fracture (principal); S32.029A Unspecified fracture of second lumbar vertebra, initial encounter for closed fracture; S32.039A Unspecified fracture of third lumbar vertebra, initial encounter for closed fracture; S32.049A Unspecified fracture of fourth lumbar vertebra, initial encounter for closed fracture; M62.830 Muscle spasm of back; I10 Essential (primary) hypertension; Z88.0 Allergy status to penicillin; Z88.2 Allergy status to sulfonamides; Z88.5 Allergy status to narcotic agent
CPT/HCPCS: 72131; 99283

== ENCOUNTER 2024-11-21 23:24 | Emergency (ER) | payer OTHER ==
[2024-11-21] MEDS ORDERED: NA CHLORIDE 0.9% 1,000 ML ONE (23:57)
[2024-11-21] MEDS ORDERED: THIAMINE 200 MG/2 ML INJ ONE (23:57)
[2024-11-21] MEDS ORDERED: LORazepam 2 MG/ML VIAL ONE (23:57)
[2024-11-21] MEDS ORDERED: D5 0.9 NS 1,000 ML IV ONE (23:58)
[2024-11-22 00:14] LABS: Specific Gravity 1.003 (1.005-1.030)
[2024-11-22 00:22] LABS: Specific Gravity < 1.005 (1.005-1.030); Sqamous Epithelial <5 /HPF (None Seen); Urine Bacteria <20 /HPF (<20); Urine Bilirubin NEGATIVE (Negative); Urine Blood Negative (Negative); Urine Clarity Clear (Clear); Urine Color Colorless (Yellow); Urine Culture Reflex Order NOT NEEDED; Urine Glucose NEGATIVE (Negative); Urine Ketones NEGATIVE (Negative); Urine Microscopic Reflex YN ORDER UMIC; Urine Nitrite NEGATIVE (Negative); Urine Protein NEGATIVE (Negative); Urine RBC None Seen /HPF (None Seen); Urine Urobilinogen Normal (Normal); Urine WBC None Seen /HPF (<5)
[2024-11-22 00:23] LABS: Barbiturates NEGATIVE (NEGATIVE); Benzodiazepines NEGATIVE (NEGATIVE); Cocaine NEGATIVE (NEGATIVE); METHAMPHETAM NEGATIVE (NEGATIVE); Methadone NEGATIVE (NEGATIVE); Opiates NEGATIVE (NEGATIVE); Phencyclidine NEGATIVE (NEGATIVE); THC Cannibis NEGATIVE (NEGATIVE)
[2024-11-22 00:24] LABS: Hemoglobin 14.2 g/dL (12.0-15.0); MPV 7.5 fL (7.6-11.3); PTT, Activated Partial Thromb 27.5 SECONDS (24.3-36.9); Protime INR 0.86; RBC Red Blood Cell Count 4.22 M/uL (3.86-4.86)
[2024-11-22 00:27] LABS: Absolute Basophils 0.1 K/uL (0-0.5); Absolute Eosinophils 0.4 K/uL (0-0.5); Absolute Monocytes 0.3 K/uL (0.1-1.3); Absolute Neutrophil 2.3 K/uL (1.8-8.0); Basophils % 1.8 % (0-1.3); Eosinophils % 6.8 % (0-4.4); Hematocrit 41.7 % (36.0-45.0); Lymphocytes % 48.1 % (15.3-44.8); MCH 33.7 pg (27.0-35.0); MCHC 34.1 g/dL (32.0-36.0); MCV 98.8 fL (80-100); Monocytes % 5.6 % (3.3-12.3); Neutrophils % 37.7 % (41.7-73.7); Nucleated Red Blood Cells % 0.2 % (0-0); Platelets 276 thou/uL (152-406); Red Cell Distribution Width 13.2 % (12.1-15.2)
[2024-11-22 00:35] LABS: ALT/SGPT 73 U/L (13-56); AST/SGOT 79 U/L (15-37); Albumin 3.7 g/dL (3.4-5.0); Alkaline Phosphatase 69 U/L (45-117); Anion Gap 11.9 mEq/L (5.0-15.0); BUN Blood Urea Nitrogen 8 mg/dL (7-18); Bicarbonate 23 mEq/L (21-32); Bilirubin Total 0.3 mg/dL (0.2-1.0); Globulin 3.8 g/dL (2.3-3.5); Glomerular Filtration Rate 107 ml/min (=/>90); Glucose Level 96 mg/dL (74-106); Potassium 3.9 mEq/L (3.5-5.1); Protein, Total 7.5 g/dL (6.4-8.2); Sodium Level 137 mEq/L (136-145)
[2024-11-22 00:41] LABS: Bilirubin Direct < 0.2 mg/dL (0-0.2); Bilirubin Indirect, Calculated 0.1 mg/dL (0.2-0.8)
--- NOTE | 2024-11-22 01:53 | ER ---
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 Coronavirus screen: At this time, the client does not indicate any symptoms associated with coronavirus-19. Ebola Screen: Patient negative for fever greater than or equal to 101.5 degrees Fahrenheit, and additional compatible Ebola Virus Disease symptoms Patient denies exposure to infectious person. Patient denies travel to an Ebola-affected area in the 21 days before illness onset. No symptoms or risks identified at this time. 23:31 Method Of Arrival: Ambulatory [facility] 23:31 Initial Sepsis Screen: Does the patient meet any 2 criteria? No. Patient's initial 8 sepsis screen is negative. Does the patient have a suspected source of infection? No. Patient's initial sepsis screen is negative. Risk Assessment: Do you want to hurt yourself or someone else? Patient reports no desire to harm self or others. Onset of symptoms is unknown. 23:31 Acuity: BRITTA 2 8 11/22 00:21 Risk Assessment: Do you want to hurt yourself or someone else?. 8 Triage Assessment: 11/21 23:01 General: Appears distressed, comfortable, Behavior is cooperative, anxious, crying. 8 23:01 Pain: Denies pain. EENT: No deficits noted. No signs and/or symptoms were reported bm8 regarding the EENT system. Neuro: No deficits noted. 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 Full function Gait is steady, Speech is normal, Facial symmetry appears normal, Pupils are PERRLA. Cardiovascular: Denies chest pain, Heart tones S1 S2 present Capillary refill < 3 seconds in bilateral fingers Patient's skin is warm and dry. Rhythm is sinus rhythm. Respiratory: Airway is patent Trachea midline Respiratory effort is even, unlabored, Respiratory pattern is regular, symmetrical, Breath sounds are clear bilaterally. GI: No signs and/or symptoms were reported involving the gastrointestinal system. : No deficits noted. No signs and/or symptoms were reported regarding the genitourinary system. Derm: Skin is flushed. Musculoskeletal: No signs and/or symptoms reported regarding the musculoskeletal system. 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 - Infectious Disease History:: Denies. - Social history:: Smoking status: Patient reports the use of cigarette tobacco products, denies chronic smoking, but will smoke occasionally, Patient uses alcohol, on a daily basis. patient/guardian reports chronic longstanding heavy alcohol consumption. pt reports " Cait been drinking my whole life" but it got worse after I hurt my back and now I drink any where from 18-24 beers (12oz) per night.. street drugs, xanax from [place]. Screenin:17 Clinical [place] Withdrawal Assessment for Alcohol, revised (CIWA-Ar): Anxiety: 4 - bm8 Moderately anxious, guarded Auditory Disturbances: Moderate harshness or ability to frighten Total Score: < 10 Very mild withdrawal. [facility] ED Fall Risk Assessment (Adult) History of falling in the last 3 months, including since admission No falls in past 3 months (0 pts) Confusion or Disorientation No (0 pts) Intoxicated or Sedated Yes (3 pts) Impaired Gait No (0 pts) Mobility Assist Device Used No (0 pt) Altered Elimination No (0 pt) Score/Fall Risk Level 3 or more points = High Risk Oriented to surroundings, Maintained a safe environment, Educated pt \\T\\ family on fall prevention, incl call for assistance when getting out of bed, Assessed \\T\\ reinforced patient's understanding of fall precautions, Hourly rounding (assess needs \\T\\ fall precautionary measures) done, Used ambulatory aids as needed (educated on \\T\\ assisted with), Used gait belt as appropriate Implemented a Fall Risk Plan of Care. Abuse screen: Denies threats or abuse. Denies injuries from another. Nutritional screening: No deficits noted. Tuberculosis screening: No symptoms or risk factors identified. Assessment: 00:17 General: Smells of alcohol, see triage note. bm8 01:21 Reassessment: Patient appears in no apparent distress at this time. Patient and/or bm8 family updated on plan of care and expected duration. Pain level reassessed. pt is resting with eyes closed breathing is even unlabored wit symmetrical rise and fall of chest. 02:16 Reassessment: Patient appears in no apparent distress at this time. Patient and/or bm8 family updated on plan of care and expected duration. Pain level reassessed. Patient is alert, oriented x 3, equal unlabored respirations, skin warm/dry/pink. Patient denies pain at this time. Patient states feeling better. Patient states symptoms have improved. Psych: 11/21 23:31 [place] Suicide Severity Screening: In the past month, have you wished you were bm8 or wished you could go to sleep and not wake up? Patient responds "No." "In the past month, have you actually had any thoughts of killing yourself?" Patient responds "no." "In your lifetime, have you ever done anything, started to do anything, or prepared to do anything to end your life?" Patient responds "no.". Subjective: Patient's mood is sad, Delusions are denied, Hallucinations are auditory, Having thoughts of denies SI or HI. Objective: Patient is cooperative, Speech is normal, rambling, Affect is appropriate. Interventions: Patient placed in hospital gown. Urine collected and sent for urine drug test. Patient reassessed during use of restraints. Patient is physically safe. Safety Checks: none required for pt. Patient uses 12 pack of beer, daily. Last use was 20 minutes ago. Patient does not have a history of DTs. Commitment: no commitments appropriate at this time. Vital Signs: 23:31 BP 151 / 113; Pulse 100; Resp 18; Temp 99.6; Pulse Ox 100% ; Weight 93.89 kg; Height 5 bm8 ft. 8 in. ; Pain 12/27; 11/22 01:22 BP 124 / 67; Pulse 85; Resp 17; Temp 99.6; Pulse Ox 96% ; Pain 0/10; bm8 02:16 BP 128 / 72; Pulse 87; Resp 18; Temp 99; Pulse Ox 96% ; Pain 0/10; bm8 11/21 23:31 Body Mass Index 31.47 (93.89 kg, 172.72 cm) bm8 11/21 23:31 Pain Scale: Adult bm8 11/22 01:22 Pain Scale: Adult bm8 02:16 Pain Scale: Adult bm8 Combes Coma Score: 00:17 Eye Response: spontaneous(4). Motor Response: obeys commands(6). Verbal Response: bm8 oriented(5). Total: 15. 01:22 Eye Response: to voice(3). Motor Response: obeys commands(6). Verbal Response: bm8 oriented(5). Total: 14. 02:16 Eye Response: spontaneous(4). Motor Response: obeys commands(6). Verbal Response: bm8 oriented(5). Total: 15. 06:36 Eye Response: spontaneous(4). Motor Response: obeys commands(6). Verbal Response: sp4 oriented(5). Total: 15. ED Course: 11/21 23:01 Arm band placed on right wrist. bm8 23:29 Patient arrived in ED. im 23:32 Jovan Valencia MD is Attending Physician. sp4 23:32 Ganesh Hernandez, RN is Primary Nurse. bm8 23:54 EKG done, by ED staff, reviewed by Jovan Valencia MD. oe 11/22 00:11 Triage completed. bm8 00:17 No provider procedures requiring assistance completed. Initial lab(s) drawn, by glendy cao sent to lab. Urine collected: clean catch specimen, clear. Inserted saline lock: 20 gauge in right wrist, using aseptic technique. Blood collected. Flushed with 10 mL NS. Patient maintains SpO2 saturation greater than 95% on room air. 00:17 Patient has correct armband on for positive identification. Bed in low position. Call bm light in reach. Side rails up X2. Adult w/ patient. Client placed on continuous cardiac and pulse oximetry monitoring. NIBP monitoring applied. bus monitor on. Pulse ox on. Door closed. Warm blanket given. Pillow given. Verbal reassurance given. Head of bed. 02:16 IV discontinued, intact, bleeding controlled, No redness/swelling at site. Pressure bm8 dressing applied. 02:16 Provided Education on: post er care, follow up with rehab center and AA. bm8 Administered Medications: 02 23:40 Not Given (Duplicate Order): mg IV at bolus once sp4 11/22 00:16 Drug: D5-NS IV 1000 ml IV at 125 ml/hr continuous Route: IV; Rate: 125 ml/hr; Site: bm8 right wrist; 02:17 Follow up: Response: No adverse reaction; IV Status: Completed infusion; IV Intake: bm8 500ml 00:17 Drug: Thiamine IV 100 mg IV at bolus once Route: IV; Rate: bolus; Site: right wrist; bm8 01:24 Follow up: Response: No adverse reaction; IV Status: Completed infusion; IV Intake: bm8 100ml 00:17 Drug: Ativan IVP 1 mg IVP once Route: IVP; Site: right wrist; bm8 01:23 Follow up: Response: No adverse reaction bm8 00:17 Drug: NS 0.9% IV 1000 ml IV at 1000 ml once; to be given as a bolus over 60 minutes bm8 Route: IV; Rate: 1000 ml; Site: right wrist; 01:23 Follow up: Response: No adverse reaction; IV Status: Completed infusion; IV Intake: bm8 1000ml Medication: 00:17 VIS not applicable for this client. bm8 Intake: 01:23 IV: 1000ml; Total: 1000ml. bm8 01:24 IV: 100ml; Total: 1100ml. bm8 02:17 IV: 500ml; Total: 1600ml. bm8 Outcome: 01:53 Discharge ordered by . sp4 02:16 Discharged to home ambulatory, bm8 02:16 Condition: stable 02:16 Discharge instructions given to patient, Instructed on no drinking with medication, no driving heavy equipment, medication usage, safety practices, Demonstrated understanding of instructions, follow-up care, medications, Prescriptions given X 1, 02:23 Patient left the ED. bm8 Signatures: Derrick Major Sergey, MD MD sp4 Melany Mahoney Brad, RN RN bm8 Corrections: (The following items were deleted from the chart) 00:21 0202 23:31 Initial Sepsis Screen: Does the patient meet any 2 criteria? No. Patient's bm8 initial sepsis screen is negative. Does the patient have a suspected source of infection? No. Patient's initial sepsis screen is negative. [email or web address]
--- NOTE | 2024-11-22 01:54 | EDPHYS ---
Physician Documentation [facility] Name: Stacey Leroy Age: 49 yrs Sex: Female : 1975 Arrival Date: 11/21/2024 Time: 23:24 Bed 7 Private MD: ED Physician Jovan Valencia HPI: 11/21 23:33 This 49 yrs old Female presents to ER via Unassigned with complaints of ETOH sp4 Abuse, Anxiety, Depression. 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 - Infectious Disease History:: Denies. - Social history:: Smoking status: Patient reports the use of cigarette tobacco products, denies chronic smoking, but will smoke occasionally, Patient uses alcohol, on a daily basis. patient/guardian reports chronic longstanding heavy alcohol consumption. pt reports " Cait been drinking my whole life" but it got worse after I hurt my back and now I drink any where from 18-24 beers (12oz) per night.. street drugs, xanax from [place]. ROS: 06:41 Constitutional: Negative for fever, chills, and weight loss, positive intoxication, sp4 positive emotional upset, positive anxiety 06:41 All other systems are negative, Exam: 06:36 Constitutional: This is a well developed, well nourished patient who is awake, alert, sp4 moderately intoxicated female emotional upset, tearful on arrival Head/Face: Normocephalic, atraumatic. Facial plethora Eyes: Pupils equal round and reactive to light, extra-ocular motions intact. Lids and lashes normal. Conjunctiva and sclera are not injected. Cornea within normal limits. Periorbital areas with no swelling, redness, or edema. ENT: Nares patent. No nasal discharge, no septal abnormalities noted. Tympanic membranes are normal and external auditory canals are clear. Oropharynx with no redness, swelling, or masses, exudates, or evidence of obstruction, uvula midline. Mucous membranes moist. Neck: Trachea midline, no thyromegaly or masses palpated, and no cervical lymphadenopathy. Supple, full range of motion without nuchal rigidity, or vertebral point tenderness. Chest/axilla: Normal chest wall appearance and motion. Nontender with no deformity. No lesions are appreciated. Cardiovascular: Regular rate and rhythm with a normal S1 and S2. No gallops, murmurs, or rubs. Normal PMI, no JVD. No pulse deficits. Respiratory: Lungs have equal breath sounds bilaterally, clear to auscultation and percussion. No rales, rhonchi or wheezes noted. No increased work of breathing, no retractions or nasal flaring. Abdomen/GI: Soft, with normal bowel sounds. No distension or tympany. No guarding or rebound. No evidence of tenderness throughout. Back: No spinal tenderness. No costovertebral tenderness. Skin: Warm, dry with normal turgor. Normal color with no rashes, no lesions, and no evidence of cellulitis. MS/ Extremity: Pulses equal, no cyanosis. Neurovascular intact. Full, normal range of motion. Neuro: Awake and alert, GCS 15, oriented to person, place, time, and situation. Cranial nerves II-XII grossly intact. Motor strength 5/5 in all extremities. Sensory grossly intact. Intoxicated female Psych: Awake, alert, with orientation to person, place . 06:41 ECG was reviewed by the Attending Physician. EKG at 2349 normal sinus rhythm rate 88 sp4 Vital Signs: 11/21 23:31 BP 151 / 113; Pulse 100; Resp 18; Temp 99.6; Pulse Ox 100% ; Weight 93.89 kg; Height 5 bm8 ft. 8 in. ; Pain 3/10; 11/22 01:22 BP 124 / 67; Pulse 85; Resp 17; Temp 99.6; Pulse Ox 96% ; Pain 0/10; bm8 02:16 BP 128 / 72; Pulse 87; Resp 18; Temp 99; Pulse Ox 96% ; Pain 0/10; bm8 11/21 23:31 Body Mass Index 31.47 (93.89 kg, 172.72 cm) 8 11/21 23:31 Pain Scale: Adult bm8 02/ 01:22 Pain Scale: Adult bm8 02:16 Pain Scale: Adult bm8 [place] Coma Score: 00:17 Eye Response: spontaneous(4). Motor Response: obeys commands(6). Verbal Response: bm8 oriented(5). Total: 15. 01:22 Eye Response: to voice(3). Motor Response: obeys commands(6). Verbal Response: bm8 oriented(5). Total: 14. 02:16 Eye Response: spontaneous(4). Motor Response: obeys commands(6). Verbal Response: bm8 oriented(5). Total: 15. 06:36 Eye Response: spontaneous(4). Motor Response: obeys commands(6). Verbal Response: sp4 oriented(5). Total: 15. MDM: 11/21 23:41 Medical Screening Exam initiated sp4 23:49 Differential diagnosis: drug withdrawal. acute psychotic break, depression, psychosis sp4 secondary to non-compliance, Intoxication. Data reviewed: vital signs, nurses notes, lab test result(s), EKG. Consideration of Admission/Observation Escalation of care including admission/observation considered. ED course: Patient advised to continue onto the rehabilitation for alcohol rehabilitation patient was referred to [facility] prevention recovery center in [place]. Also advised perhaps to consider [facility] rehab. 11/21 23:39 Order name: Acetaminophen; Complete Time: 01:38 4 11/21 23:39 Order name: Basic Metabolic Panel; Complete Time: 01:38 4 11/21 23:39 Order name: CBC with Diff; Complete Time: 06:36 4 11/21 23:39 Order name: ETOH Level; Complete Time: 01:38 sp4 11/21 23:39 Order name: Hepatic Function; Complete Time: 01:38 4 11/21 23:39 Order name: PT-INR; Complete Time: 00:31 4 11/21 23:39 Order name: Test, Urine; Complete Time: 00:31 4 11/21 23:39 Order name: Ptt, Activated; Complete Time: 00:31 4 11/21 23:39 Order name: Salicylate; Complete Time: 00:31 4 11/21 23:39 Order name: Urinalysis w/ reflexes; Complete Time: 00:31 sp4 11/21 23:39 Order name: Urine Drug Screen; Complete Time: 00:31 sp4 11/22 00:30 Order name: Manual Differential; Complete Time: 06:36 EDMS 11/21 23:39 Order name: EKG; Complete Time: 23:39 sp4 11/21 23:39 Order name: EKG - Nurse/Tech; Complete Time: 23:55 sp4 11/21 23:39 Order name: IV Saline Lock; Complete Time: 00:21 sp4 11/21 23:39 Order name: Labs collected and sent; Complete Time: 00:21 sp4 11/21 23:39 Order name: Suicide Screening ([place]); Complete Time: 00:21 sp4 EC:49 Rate is 88 beats/min. Rhythm is regular, Normal Sinus Rhythm. QRS [place] is Normal. [place] sp4 interval is normal. QRS interval is normal. QT interval is normal. No Q waves. T waves are Normal. No ST changes noted. Clinical impression: Normal ECG. Interpreted by me. Administered Medications: 23:40 Not Given (Duplicate Order): mg IV at bolus once sp4 11/22 00:16 Drug: D5-NS IV 1000 ml IV at 125 ml/hr continuous Route: IV; Rate: 125 ml/hr; Site: [facility]; 02:17 Follow up: Response: No adverse reaction; IV Status: Completed infusion; IV Intake: bm8 500ml 00:17 Drug: Thiamine IV 100 mg IV at bolus once Route: IV; Rate: bolus; Site: right wrist; bm8 01:24 Follow up: Response: No adverse reaction; IV Status: Completed infusion; IV Intake: bm8 100ml 00:17 Drug: Ativan IVP 1 mg IVP once Route: IVP; Site: right wrist; bm8 01:23 Follow up: Response: No adverse reaction bm8 00:17 Drug: NS 0.9% IV 1000 ml IV at 1000 ml once; to be given as a bolus over 60 minutes bm8 Route: IV; Rate: 1000 ml; Site: right wrist; 01:23 Follow up: Response: No adverse reaction; IV Status: Completed infusion; IV Intake: bm8 1000ml Disposition Summary: 11/22/24 01:53 Discharge Ordered Notes: Location: Home sp4 Problem: new sp4 Symptoms: have improved sp4 Condition: Stable sp4 Diagnosis - Alcohol abuse with intoxication sp4 - 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 EDMS EDMS 23:40 23:39 BASIC METABOLIC PANEL+C.LAB.BRZ ordered. EDMS EDMS 23:40 23:39 CBC+H.LAB.BRZ ordered. EDMS EDMS 23:40 23:39 ETHANOL+C.LAB.BRZ ordered. EDMS EDMS 23:40 23:39 HEPATIC FUNCTION+C.LAB.BRZ ordered. EDMS EDMS 23:40 23:39 PROTIME (+INR)+COAG.LAB.BRZ ordered. EDMS EDMS 23:40 23:39 Test, Urine+UC.LAB.BRZ ordered. EDMS EDMS 23:40 23:39 PTT, ACTIVATED+COAG.LAB.BRZ ordered. EDMS EDMS 23:40 23:39 SALICYLATE+C.LAB.BRZ ordered. EDMS EDMS 23:40 23:39 Urinalysis+U.LAB.BRZ ordered. EDMS EDMS 23:40 23:39 URINE DRUG SCREEN+UC.LAB.BRZ ordered. EDMS EDMS
[2024-11-22 01:56] LABS: Band Neutrophils 2 % (0-1); Blood Morphology Comment NOT SEEN (NOT SEEN); Differential Total Cells Count 100; Eosinophils 3 % (0-3); Lymphocytes 51 % (15-42); Monocytes 3 % (0-10); Nucleated Red Blood Cells 1 /100WBC; Platelet Estimate ADEQ; Segmented Neutrophils 39 % (40-80)
[2024-11-22 02:32] VITALS: O2SAT 96
[2024-11-22 02:34] VITALS: BP 128/72; TEMP 99
--- NOTE | 2024-11-23 12:16 | EKG ---
Test Date: 2024-11-21 Test Time: 23:49:20 Pulley Man: MARLEN MEASUREMENT RESULTS: Intervals: Rate: 88 NC: 136 QRSD: 84 QT: 366 QTc: 442 [place]: P: 74 NC: 136 QRS: 62 T: 67 INTERPRETIVE STATEMENTS: Normal sinus rhythm Normal ECG No previous ECG available for comparison Electronically Signed On 11-23-24 12:13:06 RIP TAILER by Brendan Narvaez
== END 2024-11-22 02:23 | disposition home or self-care (01) ==
LOC: ER 23:24
DX: F10.180 Alcohol abuse with alcohol-induced anxiety disorder (principal); F10.129 Alcohol abuse with intoxication, unspecified; I10 Essential (primary) hypertension; F17.210 Nicotine dependence, cigarettes, uncomplicated
CPT/HCPCS: 96365; 93005; 85025; 81001; 80048; 36415; 81025; 85610; 80076; 85730; 80307; 96375; 99285; 80143; 80179; 82077; J3411; J7042; J7030